=== PATIENT | female | born 1940 | race Caucasian/White ===

== ENCOUNTER → 2017-05-08 | Outpatient (CLI) | payer MEDICARE, OTHER ==
[~2017-05-08] MED LIST: ALLOPURINOL100 MG PO; ASPIRIN 81MG TA81 MG PO; CILOSTAZOL100 MG PO; HYDROCHLOROTHIA25 M1 PO; IMODIUM 2MG. CAP2 MG PO; LEVOTHYROXINE0.05 MG PO; LIPITOR40 MG PO; MELATONIN5 M2 PO; MELOXICAM15 MG PO; METAMUCIL1 WAF PO; POTASSIUM CHLO20 ME2 PO; PREVACID 30MG C30 M1 PO; SPIRONOLACTONE25 MG NG; ZOFRAN4 MG PO
--- NOTE | 2017-05-09 09:42 | RADIOLOGY REPORT PS360 ---
MRI-L-SPINE W/O, MRI-3D RENDERING/MYELOGRAM HISTORY: Low back pain with bilateral leg pain and tingling LEFT SCIATICA ORDERING PHYSICIAN: Darshan Nguyễn MD PATIENT AGE: 76 years COMPARISON: 03/29/2015 TECHNIQUE: Standard multiplanar multiecho sequences are performed without contrast. 3-D MIP and myelographic images are also rendered and reviewed FINDINGS: There is normal alignment. Spinal cord ends at the L1-L2 level. L1-L2: Mild facet and ligamentum flavum hypertrophic change. L2-L3: Mild facet and ligamentum flavum hypertrophy. Probable small hemangioma at L2 vertebral body at 8 mm unchanged L3-L4: Mild facet and ligamentum flavum hypertrophy. L4-5: 3 mm anterolisthesis L4 on L5. Moderate to severe facet and ligamentum flavum hypertrophy is present severe bilateral lateral recess narrowing and transverse canal stenosis. There is moderate to severe bilateral foraminal narrowing. The facet and ligamentum hypertrophy and transverse canal narrowing appears somewhat worse on today's exam compared to the previous exam. L5-S1: 4 mm anterolisthesis of L5 with bulging disc along with facet and ligamentum flavum hypertrophy with transverse narrowing of the canal at 10 mm. Mild bilateral foraminal narrowing. IMPRESSION: 1. Multilevel lumbar spondylosis with facet and ligamentum flavum hypertrophy along with bulging disc as detailed above. Please see above for description at each level. 2. Moderate to severe facet and ligamentum flavum hypertrophy and at L4-L5 with severe bilateral lateral recess narrowing and transverse canal stenosis. There is moderate to severe bilateral foraminal narrowing. The facet and ligamentum hypertrophy and transverse canal narrowing appears somewhat worse on today's exam compared to the previous exam 3. Bulging disc L5-S1 along with facet and ligamentum flavum hypertrophy with transverse narrowing of the canal at 10 mm. Mild bilateral foraminal narrowing.
== END ==
LOC: RAD 08:25
DX: M54.32 Sciatica, left side (principal)

== ENCOUNTER → 2017-06-05 | Outpatient (CLI) | payer MEDICARE, OTHER ==
[2017-06-05 20:32] LABS: BUN 28 mg/dL (7-18)
[2017-06-05 20:37] LABS: GFR (ESTIMATED) 36 ML/MIN (59-)
== END ==
LOC: LAB 07:54
PROVIDERS: Registered Nurse Critical Care Medicine
DX: M79.605 Pain in left leg (principal)